=== PATIENT | male | born 1950 | race Hispanic/Latino ===

== ENCOUNTER 2019-03-15 05:58 | Day surgery (SDC) | payer MEDICARE ==
[2019-03-15 07:00] LABS: Basophils % (Auto) 0.6 % (0.0-1.8); Eosinophils # (Auto) 0.1 K/mm3 (0.0-0.4); Hematocrit 39.3 % (35.5-45.6); Hemoglobin 13.5 gm/dl (11.8-15.2); Lymphocytes # (Auto) 1.4 K/mm3 (1.2-5.4); Mean Corpuscular HGB Conc 35 % (32-34); Mean Corpuscular Volume 92 fl (84-94); Monocytes # (Auto) 0.9 K/mm3 (0.0-0.8); Monocytes % (Auto) 11.4 % (0.0-7.3); Platelet Count 237 K/mm3 (140-440); Red Blood Count 4.26 M/mm3 (3.65-5.03); Red Cell Distribution Width 13.7 % (13.2-15.2)
[2019-03-15] MEDS ORDERED: NACL 0.9% 500 ML 500 ML IV SCH (07:00)
[2019-03-15 07:12] LABS: INR 0.97 (0.87-1.13)
[2019-03-15 07:13] LABS: Partial Thromboplastin Time 25.6 Sec. (24.2-36.6)
[2019-03-15 07:14] LABS: BUN/Creatinine Ratio 32; Blood Urea Nitrogen 29 mg/dL (9-20); Calcium 9.1 mg/dL (8.4-10.2); Hemolysis Index 3
[2019-03-15] MEDS ORDERED: VERSED ONE (08:51)
[2019-03-15] MEDS ORDERED: SUBLIMAZE ONE (08:52)
[2019-03-15] MEDS ORDERED: XYLOCAINE 2% INFILTRATI ONE (08:53)
[2019-03-15] MEDS ORDERED: NITROGLYCERIN SYRINGE 3 ML ONE (08:53)
[2019-03-15] MEDS ORDERED: CALAN ONE (08:53)
[2019-03-15] MEDS ORDERED: HEPARIN 10,000 UNITS/10 ML ONE (08:53)
[2019-03-15] MEDS ORDERED: HEPARIN/NS 5000 UNIT/500ML(CATH LAB) 1,000 ML IR ONE (08:53)
[2019-03-15] MEDS ORDERED: ULTRAM PO PRN (09:49)
--- NOTE | 2019-03-15 09:52 | Short Stay Summary ---
Short Stay Documentation Date of service: 03/15/19 - History H&P: obtained from office - Allergies and Medications Current Medications: Allergies Sulfa (Sulfonamide Antibiotics) Allergy (Unverified 06/24/18 10:15) Unknown Home Medications Medication Instructions Recorded Confirmed Last Taken Type Aspirin [Adult Aspirin] 81 mg PO DAILY 03/15/19 03/15/19 03/14/19 History AtorvaSTATin [Lipitor] 80 mg PO QHS 03/15/19 03/15/19 03/14/19 History Clopidogrel [Plavix] 75 mg PO QDAY 03/15/19 03/15/19 03/14/19 History Donepezil [Aricept] 5 mg PO QDAY 03/15/19 03/15/19 03/14/19 History Gabapentin [Neurontin] 100 mg PO Q8HR 03/15/19 03/15/19 03/14/19 History Lisinopril/Hydrochlorothiazide 1 each PO BID 03/15/19 03/15/19 03/14/19 History [Zestoretic 20-12.5 mg] Pioglitazone [Actos] 15 mg PO QDAY 03/15/19 03/15/19 03/14/19 History metFORMIN [Glucophage] 850 mg PO BID 03/15/19 03/15/19 03/14/19 08:00 History traMADol [Ultram] 50 mg PO Q6HR PRN 03/15/19 03/15/19 03/14/19 History Active Medications Sodium Chloride (Nacl 0.9% 500 Ml) 500 mls @ 50 mls/hr IV DIRECT YO Stop: 03/15/19 16:59 Last Admin: 03/15/19 09:20 Dose: 60 mls Documented by: - Brief post op/procedure progress note Date of procedure: 03/15/19 Pre-op diagnosis: pad Post-op diagnosis: same Procedure: see report Anesthesia: local Estimated blood loss: none Pathology: none - Disposition Condition at discharge: Good Disposition: [id number] TO HOME OR SELFCARE - Discharge Diagnoses (1) PAD (peripheral artery disease) Status: Acute (2) Claudication of left lower extremity Status: Acute (3) Diabetes mellitus Status: Chronic Qualifiers: Diabetes mellitus type: type 2 Diabetes mellitus custodial insulin use: with custodial use Diabetes mellitus complication status: with circulatory complication Diabetes mellitus complication detail: with peripheral angiopathy without gangrene Qualified Code(s): E11.51 - Type 2 diabetes mellitus with diabetic peripheral angiopathy without gangrene; Z79.4 - group home (current) use of insulin (4) Hypertension Status: Chronic Qualifiers: Hypertension type: essential hypertension Qualified Code(s): I10 - Essential (primary) hypertension (5) Hyperlipemia, mixed Status: Chronic Short Stay Discharge Plan Activity: advance as tolerated Diet: low fat, low cholesterol, low salt, diabetic Wound: keep clean and dry Special Instructions: hold Metformin (for two days) Follow up with: VANCE STERLING MD [Primary Care Provider] - 7 Days
[2019-03-15 13:05] VITALS: BP 115/63
--- NOTE | 2019-03-15 14:06 | Cardiac Catherization Report ---
PROCEDURES: This is a peripheral angiogram with pullback gradients across the iliac artery. PROCEDURE PERFORMED BY: Naveen Souza MD CLINICAL INFORMATION: This is a 68-year-old male with history of hypertension, diabetes, cholesterol, but having claudication symptoms with CAT scan showed calcification of the bilateral common iliacs. He is on dual antiplatelet therapy, has some mild improvement in symptoms of the left leg claudication. Procedure was done under moderate sedation, 1 mg Versed, 50 mcg of fentanyl. Total sedation time was 13 minutes, started 9:23 a.m., finished at 9:36 a.m. Procedure was done via the right radial artery, sterile technique, local anesthesia, 6-Romansh radial sheath inserted. A pigtail catheter was placed in the distal abdominal aorta and runoff was done, showed distal abdominal aorta patent, then bifurcates common iliac arteries as right one 60 to 70%, left one has calcification noted with an 80% lesions in the common iliac, then the bilateral external iliac patent, bilateral internal iliacs patent, bilateral common femoral artery is patent, bilateral SFA patent from proximally and distally, bilateral popliteal patent, bilateral anterior tibial, peroneal and PT patent. A multipurpose placed in the right common iliac artery and there was a 20 mm gradient on pullback noted. Next, catheters were taken over the guidewire, 6-Romansh radial sheath was discontinued. Radial dressing applied. No hematoma. No bleeding. SUMMARY: 1. Distal abdominal aorta patent, left common iliac calcified 80% lesion, right common iliac 70%, but significant gradient of 20 mm noted on pullback, hemodynamically significant. 2. Bilateral external and internal iliacs patent, bilateral SFA patent, bilateral popliteal patent with 3-vessel runoff patent. 3. 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 JOB# [id number] JAN/NTS
== END 2019-03-15 13:10 | disposition home or self-care (01) ==
LOC: CATHLABREC 05:58
PROVIDERS: ATTEND Internal Medicine
DX: E11.51 Type 2 diabetes mellitus with diabetic peripheral angiopathy without gangrene (principal); I70.8 Atherosclerosis of other arteries; I73.9 Peripheral vascular disease, unspecified; I10 Essential (primary) hypertension; Z88.2 Allergy status to sulfonamides; E78.2 Mixed hyperlipidemia; Z79.899 Other long term (current) drug therapy; Z79.84 Long term (current) use of oral hypoglycemic drugs; Z87.442 Personal history of urinary calculi; Z98.890 Other specified postprocedural states; Z79.01 Long term (current) use of anticoagulants
CPT/HCPCS: 36245; 36415; 75716; 80048; 85025; 85610; 85730; 99156; C1894; J1644; J2250; J3010; J7040; Q9967

== ENCOUNTER 2019-03-31 06:06 | Inpatient (IN) | payer MEDICARE ==
[2019-03-31] MEDS ORDERED: NACL 0.9% 500 ML 500 ML IV SCH (07:00)
[2019-03-31 07:03] LABS: Basophils # (Auto) 0.1 K/mm3 (0.0-0.1); Basophils % (Auto) 1.3 % (0.0-1.8); Eosinophils # (Auto) 0.2 K/mm3 (0.0-0.4); Eosinophils % (Auto) 3.5 % (0.0-4.3); Hematocrit 40.5 % (35.5-45.6); Hemoglobin 13.9 gm/dl (11.8-15.2); Lymphocytes # (Auto) 1.3 K/mm3 (1.2-5.4); Lymphocytes % (Auto) 19.5 % (13.4-35.0); Mean Corpuscular HGB Conc 34 % (32-34); Mean Corpuscular Volume 92 fl (84-94); Monocytes # (Auto) 0.8 K/mm3 (0.0-0.8); Monocytes % (Auto) 13.2 % (0.0-7.3); Platelet Count 214 K/mm3 (140-440); Red Blood Count 4.39 M/mm3 (3.65-5.03); Red Cell Distribution Width 13.8 % (13.2-15.2)
[2019-03-31 07:14] LABS: INR 0.96 (0.87-1.13)
[2019-03-31 07:17] LABS: BUN/Creatinine Ratio 30; Blood Urea Nitrogen 27 mg/dL (9-20); Calcium 9.6 mg/dL (8.4-10.2); Hemolysis Index 8
[2019-03-31] MEDS ORDERED: HEPARIN/NS 5000 UNIT/500ML(CATH LAB) 1,000 ML IR ONE (08:55)
[2019-03-31] MEDS ORDERED: HEPARIN 10,000 UNITS/10 ML ONE (08:55)
[2019-03-31] MEDS ORDERED: ANCEF/STERILE WATER 2 GM/20 ML 2 GM/20 ML SYRINGE IV ONE (08:56)
[2019-03-31] MEDS: XYLOCAINE 2% INFILTRATI ONE ×4 (09:08→10:02)
[2019-03-31] MEDS: VERSED ONE ×3 (09:08→10:00)
[2019-03-31] MEDS: SUBLIMAZE ONE ×3 (09:08→10:00)
[2019-03-31] MEDS ORDERED: PLAVIX ONE (10:12)
[2019-03-31] MEDS ORDERED: BABY ASPIRIN ONE (10:12)
[2019-03-31] MEDS ORDERED: ALUM-MAG HYDROX-SIMETH 200-200-20MG/5ML ONE (10:13)
[2019-03-31] MEDS ORDERED: NACL 0.9% 1000 ML 1,000 ML ONE (10:57)
[2019-03-31] MEDS ORDERED: NACL 0.9% 1000 ML 1,000 ML IV SCH (12:00)
[2019-03-31] MEDS ORDERED: SODIUM CHLORIDE FLUSH SYRINGE 10 ML IV PRN (12:14)
[2019-03-31] MEDS ORDERED: TYLENOL PO PRN (12:14)
[2019-03-31] MEDS ORDERED: ZOFRAN IV PRN (12:14)
[2019-03-31] MEDS ORDERED: NORCO 5/325 PO PRN (12:14)
--- NOTE | 2019-03-31 12:23 | Operative Report ---
Operative Report Operative Report: EXAM: 1. Ultrasound-guided access of the left common femoral artery. 2. Selection of the abdominal aorta with angiography of the abdominal aorta 3. Angiography of the left lower extremity 4. Angioplasty of the left common iliac artery with a 7 mm x 60 mm Shockwave angioplasty balloon 5. Repeat angiography of the left lower extremity. 6. Closure of the left common femoral artery with a 6 Yemeni Pro-glide DATE: 03/31/19 [employer] FORMER: FERNANDO BOUCHER MD INDICATION: Left lower extremity intermittent claudication. Patient requests not to have a stent placed if possible and therefore shockwave device was decided upon. MEDICATIONS: Please see nursing report for full details. 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 PROCEDURE: The risks, benefits, and alternatives were discussed with the family and the patient; written informed consent was obtained. Patient's groins were prepped and draped in a sterile fashion. Under direct ultrasound guidance, the left common femoral artery was evaluated and was patent. The area was anesthetized. A 21-gauge micropuncture needle under direct ultrasound guidance was used to access the left common femoral artery. Needle was exchanged for transitional dilator. Wire was exchanged for a 0.035 inch wire. Transitional dilator was exchanged for 6 Yemeni sheath. Digital subtraction angiography was performed demonstrating an appropriate puncture, above the bifurcation and below the inferior epigastric artery. Left common femoral artery, external iliac artery, profundofemoral artery, superficial femoral artery, and popliteal artery were patent. The proximal tibial vessels were patent, but the mid and distal tibial vessels could not be visualized with a retrograde injection. Omni flush catheter was advanced over the wire just slightly abdominal aorta. Digital subtraction angiography was performed demonstrating patency of the infrarenal abdominal aorta, bilateral internal iliac arteries, right common iliac artery, and bilateral external iliac arteries. The left common iliac artery had severe greater than 80% narrowing in multifocal tandem nature. The patient was heparinized. Catheter was exchanged over 0.035 inch wire for an angled catheter and a 0.014 inch wire was passed into the aorta. Shockwave device was then advanced over the wire and used to perform shockwave angioplasty of the left common iliac artery at 2 nuha. This was performed throughout the vessel using numerous lisa cks. I then attempted to increase the atmospheres to 4, but the balloon ruptured on the plaques. Digital subtraction angiography was performed demonstrating excellent appearance with 10-20% residual narrowing of the left common iliac artery. Overall, this was an excellent results as further angioplasty would likely result in needing a covered stent given the sharp nature of the eccentric plaques. There is no extravasation or pseudoaneurysm. Wire was exchanged for 0.035 inch wire. Digital subtraction angiography was repeated demonstrating unchanged runoff. Over the 0.035 inch wire the site was closed with the 6 Yemeni Pro-glide. Immediate hemostasis was achieved. Sterile dressing and compressive dressing applied. Patient tolerated the procedure well. No immediate postprocedural c omplication. The patient had a palpable left posterior tibial pulse after the procedure. FINDINGS: Please see procedure note above. IMPRESSION: Successful shockwave angioplasty of the left common iliac artery. Successful selection of the abdominal aorta.
--- NOTE | 2019-03-31 12:23 | Short Stay Summary ---
Short Stay Documentation Date of service: 03/31/19 Narrative H&P: 68 year old male with mild left intermittent claudication who presents for revascularization. - History Principal diagnosis: Left LE PVD H&P: obtained from office - Allergies and Medications Current Medications: Allergies Sulfa (Sulfonamide Antibiotics) Allergy (Unverified 06/24/18 10:15) Unknown Home Medications Medication Instructions Recorded Confirmed Last Taken Type Aspirin [Adult Aspirin] 81 mg PO DAILY 03/15/19 03/31/19 03/30/19 History 81mg AtorvaSTATin [Lipitor] 80 mg PO QHS 03/15/19 03/31/19 03/30/19 History 80mg Clopidogrel [Plavix] 75 mg PO QDAY 03/15/19 03/31/19 03/31/19 05:30 History Donepezil [Aricept] 5 mg PO QDAY 03/15/19 03/31/19 03/30/19 History 5mg Gabapentin [Neurontin] 200 mg PO HS 03/15/19 03/31/19 03/30/19 History 200mg Lisinopril/Hydrochlorothiazide 1 each PO BID 03/15/19 03/31/19 03/31/19 05:00 History [Zestoretic 20-12.5 mg] 1 tab Pioglitazone [Actos] 15 mg PO HS 03/15/19 03/31/19 03/30/19 History 15mg metFORMIN [Glucophage] 850 mg PO BID 03/15/19 03/31/19 03/29/19 History 850mg traMADol [Ultram 50 MG tab] 50 mg PO Q6HR PRN 03/15/19 03/31/19 03/30/19 History 50mg Active Medications Acetaminophen (Tylenol) 650 mg PO Q4H PRN PRN Reason: Pain MILD(1-3)/Fever >100.5/HERNANDEZ Acetaminophen/Hydrocodone Bitart ([place] 5/325) 2 each PO Q6H PRN PRN Reason: Pain, Moderate (4-6) Aspirin (Halfprin Ec) 81 mg PO DAILY YO Atorvastatin Calcium (Lipitor) 80 mg PO QHS YO Clopidogrel Bisulfate (Plavix) 75 mg PO QDAY YO Donepezil HCl (Aricept) 5 mg PO QDAY YO Gabapentin (Neurontin) 200 mg PO HS [facility] Sodium Chloride (Nacl 0.9% 500 Ml) 500 mls @ 50 mls/hr IV DIRECT YO Stop: 03/31/19 16:59 Last Admin: 03/31/19 09:09 Dose: 100 mls Documented by: Sodium Chloride (Nacl 0.9% 1000 Ml) 1,000 mls @ 125 mls/hr IV DIRECT YO Ondansetron HCl (Zofran) 4 mg IV Q8H PRN PRN Reason: Nausea Pioglitazone HCl (Actos) 15 mg PO HS YO Sodium Chloride (Sodium Chloride Flush Syringe 10 Ml) 10 ml IV BID YO Sodium Chloride (Sodium Chloride Flush Syringe 10 Ml) 10 ml IV PRN PRN PRN Reason: LINE FLUSH Tramadol HCl (Ultram) 50 mg PO Q6HR PRN PRN Reason: Pain - Physical exam General appearance: no acute distress, other (low blood pressure at baseline) HEENT: EOMI Lungs: Clear to auscultation, Normal air movement Gastrointestinal: normal Extremities: normal temperature, normal color, abnormal (LLE nonpalpable pedal pulses ; RLE palpable pedal pulses) - Brief post op/procedure progress note Date of procedure: 03/31/19 Pre-op diagnosis: LLE PVD with intermittent claudication Post-op diagnosis: same Procedure: 1. Ultrasound-guided access of the left common femoral artery. 2. Selection of the abdominal aorta with angiography of the abdominal aorta 3. Angiography of the left lower extremity 4. Angioplasty of the left common iliac artery with a 7 mm x 60 mm Shockwave angioplasty balloon 5. Repeat angiography of the left lower extremity. 6. Closure of the left common femoral artery with a 6 Yi Pro-glide Anesthesia: local (w/ conscious sedation) Surgeon: FERNANDO BOUCHER Estimated blood loss: minimal Condition: stable - Hospital course Hospital course: Will be admitted to the hospital for revascularization and low blood pressure which was present at baseline but will require monitoring. Will likely be discharged tomorrow AM. 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 Diabetes mellitus complication status: with circulatory complication Diabetes mellitus complication detail: with peripheral angiopathy without gangrene Qualified Code(s): E11.51 - Type 2 diabetes mellitus with diabetic peripheral angiopathy without gangrene; Z79.4 - retirement (current) use of insulin (4) Hyperlipemia, mixed Status: Chronic (5) Hypertension Status: Chronic Qualifiers: Hypertension type: essential hypertension Qualified Code(s): I10 - Essential (primary) hypertension Short Stay Discharge Plan Activity: advance as tolerated, other (avoid lifting more than 10 lbs for 7 days) Weight Bearing Status: Weight Bear as Tolerated (do not walk up stairs, if possible, for 1 week. If necessary, take one stair at a time, slowly.) Diet: regular Wound: keep clean and dry Follow up with: CHERYL PARDO MD [Primary Care Provider] - 7 Days Prescriptions: Aspirin EC 81 mg PO QDAY #30 tablet. Clopidogrel [Plavix] 75 mg PO QDAY #30 tablet traMADol [Ultram 50 MG tab] 50 mg PO TID PRN #25 tablet PRN Reason: Pain
[2019-03-31] MEDS: ULTRAM PO PRN ×2 (12:39→21:47)
[2019-03-31] MEDS: SODIUM CHLORIDE FLUSH SYRINGE 10 ML IV SCH (21:48)
[2019-03-31] MEDS ORDERED: NEURONTIN PO SCH (22:00)
[2019-03-31] MEDS ORDERED: ACTOS PO SCH (22:00)
[2019-04-01] MEDS ORDERED: ARICEPT PO SCH (10:00)
[2019-04-01] MEDS ORDERED: PLAVIX PO SCH (10:00)
[2019-04-01] MEDS ORDERED: HALFPRIN EC PO SCH (10:00)
[2019-04-01] MEDS: SODIUM CHLORIDE FLUSH SYRINGE 10 ML IV SCH (10:16)
[2019-04-01 12:06] VITALS: BP 118/64
== END 2019-04-01 13:36 | disposition home or self-care (01) | DRG 254 ==
LOC: CATHLABREC 06:06 → 4A 12:14
PROVIDERS: ADMIT Radiology Diagnostic Radiology; ATTEND Radiology Diagnostic Radiology
PROC: B4101ZZ Fluoroscopy of Abdominal Aorta using Low Osmolar Contrast (ICD-10-PCS; principal; 2019-03-31)
PROC: 047D3ZZ Dilation of Left Common Iliac Artery, Percutaneous Approach (ICD-10-PCS; 2019-03-31)
PROC: B41G1ZZ Fluoroscopy of Left Lower Extremity Arteries using Low Osmolar Contrast (ICD-10-PCS; 2019-03-31)
DX: E11.51 Type 2 diabetes mellitus with diabetic peripheral angiopathy without gangrene (principal); I10 Essential (primary) hypertension; I70.212 Atherosclerosis of native arteries of extremities with intermittent claudication, left leg; E78.2 Mixed hyperlipidemia; Z88.2 Allergy status to sulfonamides; Z79.82 Long term (current) use of aspirin; Z79.899 Other long term (current) drug therapy; Z79.84 Long term (current) use of oral hypoglycemic drugs; Z79.4 Long term (current) use of insulin; Z82.49 Family history of ischemic heart disease and other diseases of the circulatory system
CPT/HCPCS: 36415; 37220; 75625; 75710; 76937; 80048; 82962; 85025; 85610; 85730; G0378; A9270-GY; C1725; C1760; C1769; C1887; C1894; J0690; J1644; J2250; J3010; J7030; J7040; Q9967